=== PATIENT | female | born 2000 | race Hispanic/Latino ===

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

== ENCOUNTER 2020-10-26 21:28 | Inpatient (IN) | payer OTHER ==
--- OUTSIDE RECORDS SUMMARY | 2020-10-26 21:57 | XMS REPORT | Continuity of Care Document ---
:2000 Author Organization [facility] t Address [address] [place] [address] Care Team Providers Name Role Phone Whitney Avila Attending Clinician Problems This patient has no known problems. Allergies, Adverse Reactions, Alerts This patient has no known allergies or adverse reactions. Medications This patient has no known medications. Procedures This patient has no known procedures. Encounters Start End Encounter Admission Attending Care Care Encounter Source Date/Time Date/Time Type Type Clinicians Facility Department ID 2020-10-21 2020-10-21 Routine RUBÉN Dao [id number] 09:02:21 09:33:43 Whitney Alicia PROGRAM MANAGEMENT ANALYST [id number] Visit REGIONAL [id number] MATERNAL [id number] & CHILD [facility] 2020-10-15 2020-10-15 Telephone RUBÉN Dao [id number] 00:00:00 00:00:00 Merya R PROGRAM MANAGEMENT ANALYST [id number] REGIONAL [id number] MATERNAL [id number] & CHILD 107 [facility] Results This patient has no known results.
[2020-10-26] MEDS ORDERED: METHYLERGONOVINE 0.2MG/ML AMP IM PRN (22:25)
[2020-10-26] MEDS ORDERED: MIDAZOLAM HCL 2 MG/2 ML INJ IV PRN (22:25)
[2020-10-26] MEDS ORDERED: BUTORPHANOL 1 MG/ML INJ IV PRN (22:25)
[2020-10-26] MEDS ORDERED: CARBOPROST TROME 250 MCG/ML IM PRN (22:25)
[2020-10-26] MEDS ORDERED: PROMETHAZINE INJ 25 MG/ML AMP IM PRN (22:25)
[2020-10-26] MEDS ORDERED: MEPERIDINE HCL 25 MG/ML SYR IV PRN (22:25)
[2020-10-26] MEDS ORDERED: Ringers Lactate 1,000 ML IV PRN (22:25)
[2020-10-26 22:44] VITALS: BMI 32.9
[2020-10-26 22:52] LABS: Urine Appearance CLEAR (Clear); Urine Blood NEGATIVE (Negative); Urine Color DK YELLOW (Yellow); Urine Glucose NEGATIVE (Negative); Urine Protein NEGATIVE (Negative); Urine Specific Gravity >=1.030 (1.005-1.030); Urine pH 6.5 (5.0-7.0)
[2020-10-26] MEDS ORDERED: Ringers Lactate 1,000 ML IV SCH (23:00)
[2020-10-26] MEDS ORDERED: OXYTOCIN/LR 20 UNIT/1,000 ML BAG IV SCH (23:00)
[2020-10-26 23:02] LABS: Absolute Lymphocytes (CBC) 1.8 K/uL (0.7-4.9); Basophils % 0.2 % (0-1.3); Hematocrit 33.1 % (36.0-45.0); Lymphocytes % 14.9 % (15.3-44.8); MPV 9.5 fL (7.6-11.3); RBC Red Blood Cell Count 3.83 M/uL (3.86-4.86)
[2020-10-26 23:25] LABS: Urine Bilirubin NEGATIVE (Negative)
[2020-10-27 00:43] LABS: Urine Bacteria <20 /HPF (<20); Urine Mucus 1+ /HPF (NONE SEEN); Urine RBC <5 /HPF (NONE SEEN); Urine Urothelial Cells <5 /HPF (NONE SEEN)
[2020-10-27 01:15] LABS: RPR (Rapid Plasma Reagin) NON-REACT (NON-REACT)
[2020-10-27] MEDS ORDERED: FENTANYL CITR 100 MCG/2 ML IV ONE (01:30)
[2020-10-27] MEDS ORDERED: ROPIVACAINE HCL 0.2% 20ML AMP EP ONE ×2 (01:32)
[2020-10-27] MEDS ORDERED: ROPIVACAINE HCL 100 ML EP ONE (02:47)
[2020-10-27] MEDS ORDERED: Oxycodone HCl/Acetaminophen 1 TAB TAB PO PRN ×2 (06:05)
[2020-10-27] MEDS ORDERED: DIPHENHYDRAMINE 25 MG TAB/CAP PO PRN (06:05)
[2020-10-27] MEDS ORDERED: ACETAMINOPHEN 500 MG TAB PO PRN (06:05)
[2020-10-27] MEDS ORDERED: DOCUSATE NA/SENNA CONC 1 TAB PO PRN (06:05)
[2020-10-27] MEDS ORDERED: BISACODYL 10 MG RECTAL SUPP PR PRN (06:05)
[2020-10-27] MEDS ORDERED: OXYTOCIN/LR 20 UNIT/1,000 ML BAG IV SCH (07:00)
[2020-10-27] MEDS: METHYLERGONOVINE 0.2 MG TAB PO PRN ×4 (10:00→22:00)
--- NOTE | 2020-10-27 10:19 | PREOPHP ---
Date of Admission: 10/26/2020 History Of Present Illness: A 20-year-old, 3, para 2, 38 weeks 6 days, scheduled for inducti on in [place] today actually. Came in last night with contractions noted to be 4.5 cm, 90% effaced , vertex, shirley every 2 minutes, was admitted. Noted to be Rh positive, immune to rubella, neg ative strep, negative COVID. Two other vaginal deliveries without complications or problems. Family History: Noncontributory. Past Medical History: No allergies. Past Surgical History: No previous surgeries. Social History: Does not smoke. Physical Examination: HEENT: Clear. Pupils equal, round, reactive to light and accommodation. Conjunctivae well perfused . No oral, lingual, buccal lesions. Chest and Lungs: Clear. Heart: Without murmurs, thrills, heaves, or rubs. Breasts: Not examined. Abdomen: Small for gestational age, but otherwise clear. Extremities: Clear without edema, cyanosis, or clubbing. Assessment And Plan: Essentially healthy female at 38 weeks 6 days, in labor. Admit for stabilizati on and delivery. JOVAN/MARIANN Voice ID: [id number]
--- NOTE | 2020-10-27 10:19 | DN ---
Surgeon: Kareem Mccloud MD A 20-year-old, 3, para 2, 38 weeks 6 days, came in active labor. During the labor, received Stadol IV, Phenergan IM one time, then epidural anesthesia. Second stage consisted basically of 1 pu sh. Spontaneous vaginal delivery with delivery of a 6-pound 10-ounce female, Apgars 9 and 9. No epi siotomy. No lacerations. Schultze delivery of the placenta, which was inspected. There was noted t o be some retained membranes. These were removed with ring forceps without difficulties. Mild uteri ne hypotonus. 0.2 mg of Methergine IM as well as IV drip Pitocin and massage. Estimated blood loss 3 50 to possibly 400 mL. Methergine given more as prophylaxis. The patient tolerated all procedures w ell. Final Diagnoses: Term intrauterine at 38 weeks 6 days, vaginal delivery, epidural anesthes ia. JOVAN/MARIANN Voice ID: [id number] Report ID: [id number]
[2020-10-27] MEDS: IBUPROFEN 600 MG TAB PO PRN ×2 (10:38→23:55)
[2020-10-28 09:23] VITALS: BP 105/64; TEMP 97.5
--- NOTE | 2020-10-28 21:05 | DS ---
Date of Discharge: 10/28/2020 Hospital Course: A 20-year-old multiparous female, 38 weeks 6 days, came in active labor, delivered a 6 pounds 10 ounces female, Apgars 9 and 9, epidural anesthesia. No episiotomy. No laceration. Mi ld uterine hypotonus. 0.2 mg of Methergine IM and then subsequently p.o. every 4 hours 4 doses. She is ambulating, voiding. Lochia is normal. Wishes to go home. She is B positive, immune to rubella . Strep negative. COVID negative. Tdap shot suggested. No post epidural problems. Requires no an algesics on dismissal. Final Diagnoses: Term intrauterine at 38 weeks 6 day, followed in [facility], reena salazar. Epidural anesthesia. Mild uterine hypertonus. Tdap offered. JOVAN/MARIANN Voice ID: [id number] Report ID: [id number]
[2020-10-29 19:21] LABS: HBsAG Nonreactive (Nonreactive)
== END 2020-10-28 10:25 | disposition home or self-care (01) | DRG 807 ==
LOC: L&D 21:28 → 2ND-WC 21:55
PROVIDERS: ADMIT Specialist; ATTEND Specialist
PROC: 10E0XZZ Delivery of Products of Conception, External Approach (ICD-10-PCS; principal; 2020-10-27)
DX: O62.2 Other uterine inertia (principal); Z37.0 Single live birth; Z3A.38 38 weeks gestation of pregnancy; Z20.822 Contact with and (suspected) exposure to COVID-19
CPT/HCPCS: 36415; 81001; 85025; 86592; 86901; 87086; 87088; 87340; 99218; J0595; J2210; J2550; J2590; J2795; J3010; J7120

== ENCOUNTER 2022-07-18 15:27 | Emergency (ER) | payer OTHER ==
--- OUTSIDE RECORDS SUMMARY | 2022-07-18 15:51 | XMS REPORT | Continuity of Care Document ---
:2000 Author Organization [facility] t Address [address] [place] [address] Care Team Providers Name Role Phone DANIELLE CARRION Primary Care Physician Unavailable DANIELLE CARRION Attending Clinician Unavailable SKYE HEDRICK Attending Clinician Unavailable SKYE HEDRICK Attending Clinician Unavailable Yana King Attending Clinician [phone] WHITNEY POPE Attending Clinician Unavailable YANA JOVEL Attending Clinician Unavailable Whitney Avila Attending Clinician Doctor Unassigned, [place] Attending Clinician Unavailable Skye Paiz Attending Clinician SKYE VIZCAINO Attending Clinician Unavailable Lab, Adc Fam Pob I Attending Clinician Unavailable Capri Maria Attending Clinician Dnenis TURNER, Scott Umanzoran Attending Clinician 3, [facility] Usg Room Attending Clinician Unavailable Teddy MELLO, Betty Casper Attending Clinician Karson RN, Radha Ortiz Attending Clinician Karan BEAD SUPERVISOR, Aminah Cleveland Attending Clinician Nathan MELLO, Son Attending Clinician 2, [facility] Usg Room Attending Clinician Unavailable Geronimo MELLO, Sharron Phipps Attending Clinician Manuela MELLO, Luli Ortiz Attending Clinician BETTY ESPINAL Attending Clinician Unavailable Nathan MELLO, Son Admitting Clinician DRU CARLSON Admitting Clinician Unavailable Payers Payer Name Policy Type Policy Number Effective Date Expiration Date [facility] [id number] 2018 [facility] MEDICAID 00:00:00 [facility] [id number] 2021 00:00:00 [place]ICAID OF [place] [id number] 2015 2016 00:00:00 00:00:00 Problems Condition Condition Condition Status Onset Resolution Last Treating Co mments Source Name Details Category Date Date Treatment Clinician Date Other Other Disease Active Univers general general 3-31 [place] of [place] advice 00 Me dical for for Branch contracept contracept bettie bettie management management Rubella Rubella Disease Active Overview: Univ ers non-immune non-immune 5-10 Formattin ity of status, status, 00:00: g of this [place] antepartum antepartum 00 note Me dical might be Branch different from the original. Address pp Well woman Well woman Disease Active 2015-05 U nivers exam exam 1-07 ity of 00:00: [place] 00 Medical Branch Allergies, Adverse Reactions, Alerts Allergy Allergy Status Severity Reaction(s) Onset Inactive Treating Comm ents Source Name Type Date Date Clinician Mohit Elmore Active - Had acute Univers maddy Hcl ty to See comments 12-15 paralysis ity of (Pf) adverse 00:00: [place] reaction 00 Medical s Branch ONDANSET DRUG Active Unknown-Cmnt Un misty MADDY HCL 12-15 ity of (PF) 00:00: [place] 00 Medical Branch Social History Social Habit Start Date Stop Date Quantity Comments Source Exposure to Not sure University SARS-CoV-2 [place] Medical (event) Branch Alcohol intake 2021-08-20 2021-08-20 0 /d University 00:00:00 00:00:00 [facility] Tobacco use and 2015-02-12 2015-02-12 Smokeless tobacco Un iversity of exposure 00:00:00 00:00:00 non-user [facility] Sex Assigned At 2000 2000 Universit y of 00:00:00 00:00:00 [facility] Smoking Status Start Date Stop Date Source Never smoked tobacco [facility] Medications Ordered Filled Start Stop Current Ordering Indication Dosage Frequency Signature Comments Components Source Medication Medication Date Date Medication? Clinician (SIG) Name Name medroxyPROG 2021-2021- No [id number] 150mg Univers ESTERone 08-20 ity of (DEPO-PROVE 20:30: 21:29 [place] RA) 00 :00 Medical injection Branch 150 mg medroxyPROG 2021-2021- No [id number] 150mg 150 mg, Univers ESTERone 08-20 Intramuscu ity of (DEPO-PROVE 20:30: 21:29 lar, [place] RA) 00 :00 [id number], Medical injection 3 doses, Branch 150 mg First dose on Grace 08/20/21 at 1530, Last dose on Grace 02/04/22 at 1530, Routine medroxyPROG 2021-0 2021- No [id number] 150mg Univers ESTERone 08-20 ity of (DEPO-PROVE 20:30: 21:29 [place] RA) 00 :00 Medical injection Branch 150 mg LOESTRIN FE 2020-05 Yes [id number] 1{tbl} Take 1 Univers (MICROGESTI 2-17 tablet by ity of N FE 06/11) 00:00: mouth [place] 1 mg-20 mcg 00 daily. Medica l (21)/75 mg Branch (7) tablet LOESTRIN FE 2020-05 Yes [id number] 1{tbl} Take 1 Univers (MICROGESTI 2-17 tablet by ittamra of Kervin 06/11) 00:00: mouth [place] 1 mg-20 mcg 00 daily. Medica l (21)/75 mg Branch (7) tablet Immunizations Ordered Filled Immunization Date Status Comments [facility] e Immunization Name Name Influenza Virus 2021-05-08 Completed Universit y of Vaccine Quad IM, 00:00:00 [place] Me dical Preserv and ABX Branch Free 6 MO-64 YRS Influenza Virus 2021-05-08 Completed Universit y of Vaccine Quad IM, 00:00:00 [place] Me dical Preserv and ABX Branch Free 6 MO-64 YRS TDAP 2020-09-15 Completed University of 00:00:00 [facility] TDAP 2020-09-15 Completed University of 00:00:00 [facility] TDAP 2019-03-15 Completed University of 00:00:00 [facility] TDAP 2019-03-15 Completed University of 00:00:00 [facility] TDAP 2015-09-03 Completed University of 00:00:00 [facility] TDAP 2015-09-03 Completed University of 00:00:00 [facility] TDAP 2015-01-14 Completed University of 00:00:00 [facility] TDAP 2015-01-14 Completed University of 00:00:00 [facility] Vital Signs Vital Name Observation Time Observation Value Comments Source Systolic blood 2021-08-20 19:55:00 134 mm[Hg] Univer sity of pressure [facility] Diastolic blood 2021-08-20 19:55:00 78 mm[Hg] Unive rsity of pressure [facility] Heart rate 2021-08-20 19:55:00 67 /min [facility] Body temperature 2021-08-20 19:55:00 36.11 [facility] 2021-08-20 19:55:00 20 /min [facility] Body height 2021-08-20 19:55:00 162.6 cm [facility] Body weight 2021-08-20 19:55:00 85.9 kg [facility] BMI 2021-08-20 19:55:00 32.51 kg/m2 [facility] Procedures Procedure Date / Time Performed Performing Clinician Ruba staples POCT TEST 2021-08-20 19:56:00 Yana Jovel [facility] Encounters Start End Encounter Admission Attending Care Care Encounter Source Date/Time Date/Time Type Type Clinicians Facility Department ID 2021-03-20 Emergency [facility] [id number] Univers [facility] 2022-07-13 2022-07-13 Outpatient R MURALI [facility] [id number] Univers 13:45:00 13:45:00 DANIELLE [facility] 2021-12-01 2021-12-01 Outpatient R SKYE HEDRICK [facility] [id number] Univers 10:30:00 10:30:00 SKYE HEDRICK [facility] 2021-11-30 2021-11-[address] [facility] 1.2.840.114 [id number] Univers 00:00:00 00:00:00 Yana Arzola MGMT CONSULTANT 350.1.13.10 ity of [facility] 4.2.7.2.686 José Miguel as MATERNAL [id number] Med ical & CHILD [address] [place] [address] 2021-11-12 2021-11-12 Outpatient R [facility] [id number] Univers 10:30:00 10:30:00 ity [facility] 2021-11-12 2021-11-12 Outpatient R TOSHIA [facility] [id number] Univers 10:30:00 10:30:00 ROSHUNDA ity o f [facility] 2021-08-26 2021-08-26 Outpatient R [facility] [id number] Univers 10:00:00 10:00:00 [facility] 2021-08-20 2021-08-20 [facility] [id number] Univers 13:30:00 15:26:07 Visit Yana Arzola MGMT CONSULTANT 350.1.13.10 ity of [facility] 4.2.7.2.686 José Miguel as MATERNAL [id number] Med ical & CHILD [address] [place] [address] 2021-08-20 2021-08-20 Outpatient R AKINSIPE, [facility] [id number] Univers 13:30:00 15:26:07 YANA ity o f [facility] 2021-08-20 2021-08-20 Outpatient R AKINSIPE, [facility] [id number] Univers 13:30:00 13:30:[address] [facility] 2021-08-12 2021-08-12 [facility] [id number] Univers 10:30:00 11:22:48 WHITNEY ity o f [facility] 2021-08-12 2021-08-12 [facility] [id number] [id number] Univers 10:30:00 11:22:48 Visit Whitney Alicia MGMT CONSULTANT 350.1.13.10 ity of [facility] 4.2.7.2.686 José Miguel as MATERNAL [id number] [facility] ical & CHILD [address] [place] [address] 2021-08-12 2021-08-12 Orders Doctor SMITH 1.2.840.114 [id number] Univers 00:00:00 00:00:00 Only Unassigned, TONIO 350.1.13.10 ity of [place] [facility] 4.2.7.2.686 José Miguel as [id number] [address] 2021-08-06 2021-08-06 Outpatient R AKINSIPE, [facility] [id number] Univers 13:15:00 13:15:[address] [facility] 2021-08-06 2021-08-06 Outpatient R AKINSIPE, [facility] [id number] Univers 13:15:00 13:15:[address] [facility] 2021-05-08 2021-05-08 Office [facility] [id number] Univers 13:30:00 15:10:16 Visit Skye Templeton MGMT CONSULTANT 350.1.13.10 it y of [facility] 4.2.7.2.686 José Miguel as MATERNAL [id number] [facility] & CHILD [address] [place] [address] 2021-05-08 2021-05-08 Outpatient R CARRILLO, [facility] [id number] Univers 13:30:00 15:10:16 SKYE root [facility] 2021-05-08 2021-05-08 Outpatient R CARRILLO, [facility] [id number] Univers 13:30:00 13:30:00 SKYE root [facility] 2021-02-05 2021-02-05 Outpatient R AKINSIPE, [facility] [id number] Univers 08:15:00 08:15:[address] [facility] 2021-01-07 2021-01-07 Outpatient R AKINSIPE, [facility] [id number] Univers 15:15:00 15:15:00 YANA ity o f [facility] 2020-12-17 2020-12-17 Routine Akinsipe, [facility] [id number] Univers 08:15:24 08:45:40 Yana C MGMT CONSULTANT 350.1.13.10 ity of Visit REGIONAL 4.2.7.2.686 José Miguel as MATERNAL [id number] [facility] ical & CHILD [address] [place] [address] 2020-12-17 2020-12-17 Outpatient R AKINSIPE, [facility] [id number] Univers 08:15:00 08:15:[address] [facility] 2020-12-08 2020-12-08 Outpatient R AKINSIPE, [facility] [id number] Univers 16:00:00 16:00:[address] [facility] 2020-11-25 2020-11-25 Telephone Akinsipe, [facility] 1.2.840.114 [id number] Univers 00:00:00 00:00:00 Yana C MGMT CONSULTANT 350.1.13.10 ity of REGIONAL 4.2.7.2.686 José Miguel as MATERNAL [id number] [facility] & CHILD [address] [place] [address] 2020-11-17 2020-11-17 Outpatient R AKINSIPE, [facility] [id number] Univers 10:30:00 10:30:[address] [facility] 2020-10-29 2020-10-[address] [facility] [id number] Univers 00:00:00 00:00:00 Roshunda R MGMT CONSULTANT 350.1.13.10 ity of REGIONAL 4.2.7.2.686 José Miguel as MATERNAL [id number] Med ical & CHILD [address] [place] [address] 2020-10-21 2020-10-21 [facility] 1.2.840.114 [id number] 09:02:21 09:33:43 Roshunda R MGMT CONSULTANT 350.1.13.10 Visit REGIONAL 4.2.7.2.686 MATERNAL [id number] & CHILD [address] [place] [address] 2020-10-21 2020-10-21 [facility] 1.2.840.114 [id number] Univers 09:02:21 09:33:43 Roshunda R MGMT CONSULTANT 350.1.13.10 ity of Visit REGIONAL 4.2.7.2.686 José Miguel as MATERNAL [id number] Med ical & CHILD [address] [place] [address] 2020-10-21 2020-10-21 Outpatient R TOSHIA [facility] [id number] Univers 08:15:00 08:15:00 ROSHUNDA ity o f [facility] 2020-10-15 2020-10-15 Telephone [facility] [id number] 00:00:00 00:00:00 Roshunda R MGMT CONSULTANT 350.1.13.10 REGIONAL 4.2.7.2.686 MATERNAL [id number] & CHILD [address] [place] [address] 2020-10-15 2020-10-15 [facility]phone [facility] [id number] Univers 00:00:00 00:00:00 Roshunda R MGMT CONSULTANT 350.1.13.10 ity of REGIONAL 4.2.7.2.686 José Miguel as MATERNAL [id number] [facility] ical & CHILD [address] [place] [address] 2020-10-14 2020-10-14 [facility]ine [facility] 1.2.840.114 [id number] Univers 07:49:14 08:52:03 Roshunda R MGMT CONSULTANT 350.1.13.10 ity of Visit REGIONAL 4.2.7.2.686 José Miguel as MATERNAL [id number] [facility] & [address] 2020-10-14 2020-10-14 Outpatient Maral POPE [facility] [id number] Univers 07:45:00 07:45:[address] [facility] 2020-10-14 2020-10-14 Refill [facility] 1.2.840.114 [id number] Univers 00:00:00 00:00:00 Roshunda R MGMT CONSULTANT 350.1.13.10 ity of REGIONAL 4.2.7.2.686 José Miguel as MATERNAL [id number] [facility] & [address] 2020-10-13 2020-10-13 Outpatient [facility] [id number] Univers 13:15:00 13:15:[address] [facility] 2020-10-08 2020-10-08 Outpatient Maral POPE [facility] [id number] Univers 07:45:00 07:45:[address] [facility] 2020-10-06 2020-10-06 Outpatient Maral POPE [facility] [id number] Univers 15:45:00 15:45:00 FLAKONDA brittanyy o f [facility] 2020-09-29 2020-09-29 Outpatient Maral POPE [facility] [id number] Univers 12:45:00 12:45:00 FLAKONDA ity o f [facility] 2020-09-22 2020-09-22 Outpatient Maral POPE [facility] [id number] Univers 08:00:00 08:00:[address] [facility] 2020-09-18 2020-09-18 Telephone [facility] [id number] Univers 00:00:00 00:00:00 Roshunda R MGMT CONSULTANT 350.1.13.10 ity of REGIONAL 4.2.7.2.686 José Miguel as MATERNAL [id number] [facility] & CHILD [address] [place] [address] 2020-09-16 2020-09-[address] [facility] [id number] Univers 00:00:00 00:00:00 Merya R MGMT CONSULTANT 350.1.13.10 ity of [facility] 4.2.7.2.686 José Miguel as MATERNAL [id number] [facility] & CHILD [address] [place] [address] 2020-09-15 2020-09-15 Routine [facility] 1.2.840.114 [id number] Univers 11:09:33 11:35:21 Rosnda R MGMT CONSULTANT 350.1.13.10 ity of Visit [facility] 4.2.7.2.686 José Miguel as MATERNAL [id number] [facility] & CHILD [address] [place] [address] 2020-09-15 2020-09-15 [facility] [id number] Univers 11:00:00 11:00:[address] [facility] [facility] [address] [facility] 2020-09-12 2020-09-12 Outpatient [facility] [id number] Univers 08:45:00 08:45:[address] [facility] 2020-09-03 2020-09-03 Outpatient [facility] [id number] Univers 09:30:00 09:30:[address] [facility] [address] [facility] 2020-09-02 2020-09-02 Laboratory Lab, Adc Fam Pob I [facility] 1.2. [id number] [id number] Univers 10:21:50 10:41:50 Only Capri [facility] 350.1.13.10 ity [facility] 4.2.7.2.686 José Miguel as Professio [id number] Mi dical nal [address] 2020-09-02 2020-09-02 Outpatient R [facility] [id number] Univers 10:00:00 10:00:00 ity of [facility] 2020-09-01 2020-09-01 Outpatient R [facility] [id number] Univers 17:00:00 17:00:00 ity [facility] 2020-09-01 2020-09-01 [facility]phone [facility] [id number] Univers 00:00:00 00:00:00 Whitney R MGMT CONSULTANT 350.1.13.10 ity of [facility] 4.2.7.2.686 José Miguel as MATERNAL [id number] [facility] & CHILD [address] [place] [address] 2020-08-27 2020-08-27 [facility]phone [facility] 1.2.313.151 [id number] Univers 00:00:00 00:00:00 Whitney R MGMT CONSULTANT 350.1.13.10 ity of [facility] 4.2.7.2.686 José Miguel as MATERNAL [id number] [facility] & CHILD [address] [place] [address] 2020-08-25 2020-08-25 Outpatient [facility] [id number] Univers 14:30:00 14:30:00 ROSJERSONNDA ity o f [facility] 2020-08-12 2020-08-[address] [facility] 1.2.840.114 [id number] Univers 00:00:00 00:00:[address] [facility] 350.1.13.10 i ty of [facility] 4.2.7.2.686 [place] [id number] [address] 2020-08-11 2020-08-11 Outpatient [facility] [id number] Univers 13:45:00 13:45:00 ROSHUNDA ity o f [facility] 2020-07-31 2020-07-31 Outpatient R [facility] [id number] Univers 13:00:00 13:00:00 ity [facility] 2020-07-23 2020-07-23 Outpatient R [facility] [id number] Univers 13:30:00 13:30:[facility] 2020-07-21 2020-07-21 [facility] 1.2.840.114 [id number] Univers 14:45:01 15:41:37 Roshunda R MGMT CONSULTANT 350.1.13.10 ity of Visit REGIONAL 4.2.7.2.686 José Miguel as MATERNAL [id number] [address] 2020-07-21 2020-07-21 Outpatient R TOSHIA [facility] [id number] Univers 14:45:00 14:45:00 ROSHUNDA ity o f [facility] 2020-07-16 2020-07-16 Outpatient R TOSHIA [facility] [id number] Univers 15:00:00 15:00:00 ROSHUNDA ity o f [facility] 2020-06-30 2020-06-[address] [facility] 1.2.840.114 [id number] Univers 00:00:00 00:00:00 Roshunda R MGMT CONSULTANT 350.1.13.10 ity of REGIONAL 4.2.7.2.686 José Miguel as MATERNAL [id number] [address] 2020-06-27 2020-06-27 Global President 3, [facility] Us Room UNIVERSIT 1 .2.840.114 [id number] Univers 09:21:04 11:18:05 Visit Betty Espinal [facility] 350.1.13.10 ity of CL[place].2.[place] [id number] [address] 2020-06-27 2020-06-27 Outpatient P [facility] [id number] Univers 09:00:00 09:00:00 ity of [facility] 2020-06-18 2020-06-[address] [facility] 1.2.840.114 [id number] Univers 14:01:57 14:48:23 Roshunda R MGMT CONSULTANT 350.1.13.10 ity of Visit REGIONAL 4.2.7.2.686 José Miguel as MATERNAL [id number] [address] 2020-06-18 2020-06-18 Outpatient R TOSHIA [facility] [id number] Univers 13:45:00 13:45:00 ROSHUNDA ity o f [facility] 2020-06-18 2020-06-18 Orders Doctor LUIS 1.2.840.114 [id number] Univers 00:00:00 00:00:00 Only Unassigned, TONIO 350.1.13.10 ity of [place] [facility] 4.2.7.2.686 José Miguel as [id number] [facility] [address] 2020-06-10 2020-06-10 Outpatient R CARRILLO [facility] [id number] Univers 08:00:00 08:00:00 SKYE ittamra of [facility] 2020-05-05 2020-05-05 Outpatient R TOSHIA [facility] [id number] Univers 14:00:00 14:00:00 WHITNEY casper [facility] 2019-12-18 2019-12-18 Transition Karson Jefersonkervin 1.2.840.114 [id number] Univers 00:00:00 00:00:00 of Care Radha Montgomery 350.1.13.10 i ty of [place]7.[place].[address] [place] [id number] [facility] [address] 2019-12-15 2019-12-17 [facility] Aminah Russo [facility] 1.2.840. 114 [id number] Univers 10:18:51 16:28:00 Encounter Son Evans 350.1.13.10 ity of [place]2.[place] [id number] [facility] 080 Branch 2019-07-16 2019-07-[address] [facility] 1.2.840.114 [id number] Univers 15:23:19 16:25:38 Visit Whitney Alicia MGMT CONSULTANT 350.1.13.10 ity of [facility] 4.2.7.2.686 José Miguel as MATERNAL [id number] Med ical & CHILD [address] [place] [address] 2019-07-16 2019-07-16 Outpatient R TOSHIA [facility] [id number] Univers 15:15:00 15:15:00 WHITNEY casper [facility] 2019-06-25 2019-06-[address] [facility] 1.2.840.114 [id number] Univers 11:16:05 11:40:23 Roshunda R MGMT CONSULTANT 350.1.13.10 ity of Visit REGIONAL 4.2.7.2.686 José Miguel as MATERNAL [id number] [facility] & CHILD [address] [place] [address] 2019-01-19 2019-01-19 Abstract [facility] 1.2.840.114 [id number] Univers 00:00:00 00:00:00 Yana Arzola MGMT CONSULTANT 350.1.13.10 ity of REGIONAL 4.2.7.2.686 José Miguel as MATERNAL [id number] [facility] & CHILD [address] [place] [address] 2019-01-18 2019-01-18 Global President 2, [facility] Us Room UNIVERSIT 1 .2.840.114 [id number] Univers 10:50:09 13:05:20 Visit Sharron Melton [facility] 350.1.1 3.10 ity of [facility] 4.2.7.2.686 [place] [id number] [address] 2018-12-29 2018-12-29 Telephone [facility] 1.2.745.057 [id number] Univers 00:00:00 00:00:00 Rosjersonnda R MGMT CONSULTANT 350.1.13.10 ity of [facility] 4.2.7.2.686 José Miguel as MATERNAL [id number] [facility] & [address] 2018-12-29 2018-12-29 Letter [facility] 1.2.840.114 [id number] Univers 00:00:00 00:00:00 (Out) Flakonda R MGMT CONSULTANT 350.1.13.10 ity of [facility] 4.2.7.2.686 José Miguel as MATERNAL [id number] [facility] & CHILD [address] [place] [address] 2015-09-27 2015-09-29 Inpatient P TEDDY [facility] OBF [id number] Univers 08:10:00 17:23:00 BETTY root [facility] Results Test Description Test Time Test Comments Results Result Comments Source POCT TEST 2021-08-20 19:56:00 Test Item Value Reference Range Interpretation Comme nts POCT PREG (test code = 1605) Negative On board controls acceptable with C Line (test code = 3574) Yes POCT PREG LOT # (test code = 3575) POCT PREG TEST DATE (test code = 3576) [facility]
[2022-07-18 16:13] LABS: Absolute Lymphocytes (CBC) 1.4 K/uL (0.7-4.9); Hematocrit 34.8 % (36.0-45.0); Lymphocytes % 13.9 % (15.3-44.8); MCV 86.6 fL (80-100); MPV 8.2 fL (7.6-11.3); RBC Red Blood Cell Count 4.01 M/uL (3.86-4.86)
[2022-07-18 16:38] LABS: Urine Bacteria None Seen /HPF (<20); Urine RBC >50 /HPF (None Seen)
[2022-07-18 16:48] LABS: Urine Color Red (Yellow)
[2022-07-18 16:49] LABS: Urine Clarity Extremely Turbid (Clear)
[2022-07-18 17:02] LABS: Potassium 3.5 mmol/L (3.5-5.1)
[2022-07-18] MEDS ORDERED: ACETAMINOPHEN 500 MG TAB ONE (17:55)
--- NOTE | 2022-07-18 18:35 | RAD REPORT ---
EXAM DESCRIPTION: US - Transvaginal OB - 07/18/2022 5:47 pm CLINICAL HISTORY: Pain COMPARISON: Transvaginal OB dated 11/15/2018 TECHNIQUE: Sonographic grayscale and color flow images of the pelvis were obtained through a transva ginal approach. FINDINGS: Uterus is anteverted, measuring 12.7 centimeter in length. The endometrium is thickened and heterogeneous, without a focal lesion, measuring 1.6 centimeter in t hickness. No gestational sac is visualized in the endometrial cavity. The left ovary shows maintained vascularity. A simple appearing anechoic ovoid 1.3 x 1.0 x 0.9 centim eter cyst is noted, likely a dominant cyst or follicle. No suspicious cysts or masses. The right ovary is not visualized. No free fluid. IMPRESSION: 1. Evaluation is limited by nonvisualization of the right ovary. 2. No intrauterine , or evidence of ectopic on the left. 3. Endometrium is heterogeneous, please correlate with menstrual phase. 4. No free fluid.
[2022-07-18] MEDS ORDERED: MORPHINE 2 MG/ML SYR ONE (18:51)
[2022-07-18 19:36] LABS: SARS-CoV-2 Antigen Rapid Res Negative (Negative)
--- NOTE | 2022-07-18 19:50 | EDPHYS ---
Physician Documentation [facility] Name: Maame Mcmahon Age: 21 yrs Sex: Female : 2000 Arrival Date: 07/18/2022 Time: 15:29 Bed 7 Private MD: ED Physician Shahid Olson HPI: 07/18 15:56 This 21 yrs old Female presents to ER via Ambulatory with complaints of kb Vaginal Bleeding, + Preg <12wks, Abdominal Cramping. 15:56 The patient presents to the emergency department with abdominal pain, of the suprapubic kb area, that started this morning, described as crampy, vaginal bleeding, that is light. course: care: none, Leakage of Fluid: none appreciated, Ultrasound: the patient has not had an ultrasound, Risk/complications: no obvious risks or complications are appreciated. Previous pregnancies: in previous pregnancies patient has had. Associated signs and symptoms: Pertinent positives: abdominal pain, vaginal bleeding. The patient has not experienced similar symptoms in the past. The patient has not recently seen a physician. 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 - Social history:: Smoking status: unknown. ROS: 15:55 Constitutional: Negative for fever, chills, and weight loss. kb 15:55 Abdomen/GI: Positive for abdominal cramps. 15:55 : Positive for vaginal bleeding. 15:55 All other systems are negative. Exam: 15:55 Constitutional: This is a well developed, well nourished patient who is awake, alert, kb and in no acute distress. Head/Face: Normocephalic, atraumatic. ENT: Moist Mucous membranes Cardiovascular: Regular rate and rhythm with a normal S1 and S2. No gallops, murmurs, or rubs. No pulse deficits. Respiratory: Respirations even and unlabored. No increased work of breathing. Talking in full sentences Skin: Warm, dry with normal turgor. Normal color. MS/ Extremity: Pulses equal, no cyanosis. Neurovascular intact. Full, normal range of motion. Neuro: Awake and alert, GCS 15, oriented to person, place, time, and situation. Moves all extremities. Normal gait. Psych: Awake, alert, with orientation to person, place and time. Behavior, mood, and affect are within normal limits. 15:55 Abdomen/GI: Inspection: abdomen appears normal, Bowel sounds: normal, Palpation: soft, in all quadrants, mild abdominal tenderness, in the suprapubic area and left lower quadrant. 19:48 : Pelvic Exam: External exam: is normal, Speculum exam: moderate bleeding, no kb cervicitis, os that is open, tissue in cervix is seen, the nurse was present for the exam. Vital Signs: 15:32 BP 130 / 84; Pulse 82; Resp 16; Temp 98.6; Pulse Ox 100% on R/A; Weight 83.91 kg; hb Height 5 ft. 3 in. (160.02 cm); Pain 1/10; 15:45 BP 105 / 73; Pulse 58; Resp 17; Pulse Ox 98% ; jl7 17:50 BP 103 / 66; Pulse 68; Resp 15; Pulse Ox 98% ; jl7 18:45 BP 114 / 77; Pulse 66; Resp 15; Pulse Ox 98% ; jl7 19:30 BP 101 / 66; Pulse 58; Resp 17 S; Pulse Ox 98% on R/A; aa9 20:15 BP 100 / 58; Pulse 65; Resp 16 S; Pulse Ox 98% on R/A; aa9 15:32 Body Mass Index 32.77 (83.91 kg, 160.02 cm) hb MDM: 15:31 Patient medically screened. kb 15:39 ED course: Patient is a 21-year-old female who presents for vaginal bleeding that kb started this morning. States she still wearing the same pad that she put on when the bleeding started. LMP 05/22/2022. G4, . Patient reports mild cramping. On exam patient has mild tenderness to suprapubic area and left lower quadrant. Will obtain serum labs, urinalysis and transvaginal ultrasound.. 15:55 Differential diagnosis: ectopic . Data reviewed: vital signs, nurses notes. kb 19:15 Management of patient was discussed with the following: Dr Perry, OB at [facility]. kb States she would evaluate pt in the ER if she was sent there, but could not accept this pt to L\T\D. [facility] is unable to accept ER to ER transfers per the transfer center. Will try to transfer pt to [facility]. 19:46 Discussion of test interpretation with radiology: I had a discussion with radiology kb regarding a test interpretation. Discussed US with Dr Mckeon. Counseling: I had a detailed discussion with the patient and/or guardian regarding: the historical points, exam findings, and any diagnostic results supporting the discharge/admit diagnosis, lab results, radiology results, the need to transfer to another facility. ED course: [facility] transfer center called back. Dr Perry will accept pt to [facility] L\T\D.. 19:49 ED course: Pelvic exam completed. Clots removed from vaginal vault. Tissue noted in kb cervix. Moderate bleeding.. 07/18 15:32 Order name: Abo/rh Typing; Complete Time: 17:01 kb 07/18 15:32 Order name: Basic Metabolic Panel; Complete Time: 17:12 kb 07/18 15:32 Order name: CBC with Diff; Complete Time: 16:17 kb 07/18 15:32 Order name: Quantitative Hcg; Complete Time: 17:12 kb 07/18 16:01 Order name: UA; Complete Time: 16:51 eb 07/18 18:58 Order name: SARS RAPID; Complete Time: 19:40 eb 07/18 15:32 Order name: US Transvaginal Ob; Complete Time: 18:53 kb 07/18 15:32 Order name: IV Saline Lock; Complete Time: 16:11 kb 07/18 15:32 Order name: Labs collected and sent; Complete Time: 16:11 kb 07/18 15:32 Order name: NPO; Complete Time: 15:52 kb Administered Medications: 17:54 Drug: Tylenol 1000 mg Route: PO; jl7 20:23 Follow up: Response: No adverse reaction aa9 18:50 Drug: morphine 2 mg Route: IVP; Infused Over: 4 mins; Site: right antecubital; jl7 20:23 Follow up: Response: No adverse reaction aa9 Disposition Summary: 07/18/22 19:48 Transfer Ordered Transfer Location: [facility] kb Reason: Higher level of care kb Condition: Stable kb Problem: new kb Symptoms: are unchanged kb Accepting Physician: Dr Perry(07/18/22 20:32) aa9 Diagnosis - Lower abdominal pain, unspecified kb - Incomplete spontaneous without complication - vs ectopic kb Forms: - Medication Reconciliation Form kb - SBAR form kb Addendum: 07/20/2022 07:17 Co-signature as Attending Physician, Shahid Olson MD I reviewed the patient's care r n provided by the Advanced Practice Provider and agree with the diagnosis and treatment plan. Signatures: Dispatcher [employer] EDVA Annamaria Campa, COLD STORAGE SUPERINTENDENT-C COLD STORAGE SUPERINTENDENT-Ckb Shahid Olson MD MD rn Baxter, Heather RN RN Cheo Sarah RN RN jl7 Leanne Jackson RN RN aa9 Corrections: (The following items were deleted from the chart) 07/18 18:57 15:32 Urine Dipstick-Ancillary ordered. asia jl7 18:57 15:32 Urine Test ordered. asia jl7 20:32 19:48 Dr Perry kb aa9
--- NOTE | 2022-07-18 19:50 | ER ---
Nurse's Notes [facility] Name: Maame Mcmahon Age: 21 yrs Sex: Female : 2000 Arrival Date: 07/18/2022 Time: 15:29 Bed 7 Private MD: Diagnosis: Lower abdominal pain, unspecified;Incomplete spontaneous without complication-vs ectopic Presentation: 07/18 15:32 Chief complaint: Heavy vaginal bleeding and abdominal cramping since this morning. hb Reports recent positive home test. LMP unknown, possibly April. . Coronavirus screen: At this time, the client does not indicate any symptoms associated with coronavirus-19. Ebola Screen: No symptoms or risks identified at this time. Initial Sepsis Screen: Does the patient meet any 2 criteria? No. Patient's initial sepsis screen is negative. Does the patient have a suspected source of infection? No. Patient's initial sepsis screen is negative. Risk Assessment: Do you want to hurt yourself or someone else? Patient reports no desire to harm self or others. Onset of symptoms was July 18, 2022. 15:32 Method Of Arrival: Ambulatory 15:32 Acuity: GODFREY 3 hb Triage Assessment: 16:00 General: Appears in no apparent distress. uncomfortable, Behavior is calm, cooperative, jl7 appropriate for age. 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 - Social history:: Smoking status: unknown. Screenin:45 [facility] ED Fall Risk Assessment (Adult) History of falling in the last 3 months, jl7 including since admission No falls in past 3 months (0 pts). Abuse screen: Denies threats or abuse. Denies injuries from another. Nutritional screening: No deficits noted. Tuberculosis screening: No symptoms or risk factors identified. Assessment: 15:45 Obstetrical Assessment: General assessment: awake and alert, anxious, skin warm and jl7 dry, respirations even and unlabored. Pain: Complains of pain in left lower quadrant and suprapubic area Pain currently is 1 out of 10 on a pain scale. : Reports vaginal bleeding that is bright red, heavy flow. 16:45 Reassessment: Patient appears in no apparent distress at this time. No changes from jl7 previously documented assessment. Patient and/or family updated on plan of care and expected duration. Pain level reassessed. Patient is alert, oriented x 3, equal unlabored respirations, skin warm/dry/pink. 17:10 Reassessment: US at bedside. jl7 17:50 Reassessment: US completed ordered imaging. jl7 18:45 Reassessment: KIRILL Yin at bedside for pelvic exam, multiple blood clots removed, pt jl7 reports increased pain, VO for 2 mg Morphine IVP, pt medicated as ordered. 20:10 Reassessment: report provided to receiving facility, pt aware of transfer, denies any [facility] concerns at this time. pt provided clean pad and changed linens. 20:22 Reassessment: [facility] at bedside, report provided. aa9 Vital Signs: 15:32 BP 130 / 84; Pulse 82; Resp 16; Temp 98.6; Pulse Ox 100% on R/A; Weight 83.91 kg; hb Height 5 ft. 3 in. (160.02 cm); Pain 1/10; 15:45 BP 105 / 73; Pulse 58; Resp 17; Pulse Ox 98% ; jl7 17:50 BP 103 / 66; Pulse 68; Resp 15; Pulse Ox 98% ; jl7 18:45 BP 114 / 77; Pulse 66; Resp 15; Pulse Ox 98% ; jl7 19:30 BP 101 / 66; Pulse 58; Resp 17 S; Pulse Ox 98% on R/A; aa9 20:15 BP 100 / 58; Pulse 65; Resp 16 S; Pulse Ox 98% on R/A; aa9 15:32 Body Mass Index 32.77 (83.91 kg, 160.02 cm) hb ED Course: 15:29 Patient arrived in ED. mr 15:30 Annamaria Campa, MADYSON is PHCP. kb 15:30 Shahid Olson MD is Attending Physician. kb 15:34 Triage completed. hb 15:34 Arm band placed on left wrist. hb 15:45 Patient has correct armband on for positive identification. jl7 15:52 Cheo Walters, RN is Primary Nurse. jl7 16:12 Initial lab(s) drawn, by mn, sent to lab. Inserted saline lock: 20 gauge in right jl7 antecubital area, using aseptic technique. Blood collected. 17:56 US Transvaginal Ob In Process Unspecified. EDMS 18:35 Pulse ox on. NIBP on. Warm blanket given. jl7 18:35 Assist provider with pelvic exam: Set up pelvic tray. Performed by Annamaria COUGHLIN Patient tolerated well. 18:56 initiated a transfer with Rik Bryan from the [facility] Transfer [facility]. eb 20:17 Repositioned patient. Linen changed. aa9 20:32 Patient transferred, IV remains in place. aa9 Administered Medications: 17:54 Drug: Tylenol 1000 mg Route: PO; jl7 20:23 Follow up: Response: No adverse reaction aa9 18:50 Drug: morphine 2 mg Route: IVP; Infused Over: 4 mins; Site: right antecubital; jl7 20:23 Follow up: Response: No adverse reaction aa9 Medication: 15:45 VIS not applicable for this client. jl7 Outcome: 19:48 ER care complete, transfer ordered by kb 20:32 Transferred by ground EMS to [facility], Transfer form aa9 completed. 20:32 Condition: stable 20:32 Instructed on the need for transfer. 20:32 Patient left the ED. aa9 Signatures: Dispatcher [employer] EDAnnamaria Covington FNP-C FNP-Ckb Krishna Sharron PalmaJeana RN RN Cheo Walters RN RN jl7 Jordyn Robert Aylin, POLLY RN aa9
[2022-07-18 20:43] VITALS: TEMP 98.6
[2022-07-18 20:49] VITALS: O2SAT 98
[2022-07-18 21:02] VITALS: BP 100/58
== END 2022-07-18 20:32 | disposition short-term general hospital (02) ==
LOC: ER 15:27
DX: O03.4 Incomplete spontaneous abortion without complication (principal); R10.30 Lower abdominal pain, unspecified; Z20.822 Contact with and (suspected) exposure to COVID-19
CPT/HCPCS: 85025; 81001; 80048; 36415; 86900; 86901; 84702; 76817; 96374; 99285; 87811; J2270

== ENCOUNTER 2023-01-16 20:42 | Emergency (ER) | payer OTHER ==
--- OUTSIDE RECORDS SUMMARY | 2023-01-16 20:45 | XMS REPORT | Continuity of Care Document ---
:2000 Author Organization [facility] t Address [address] [facility] [address] [place] [address] Care Team Providers Name Role Phone DANIELLE CARRION Primary Care Physician Unavailable YANA JOVEL Attending Clinician Unavailable Whitney Avila Attending Clinician Unavailable MILLER MATA Attending Clinician Unavailable MILLER MATA Attending Clinician Unavailable DANIELLE CARRION Attending Clinician Unavailable SKYE HEDRICK Attending Clinician Unavailable SKYE HEDRICK Attending Clinician Unavailable Becka LOULOUP, Yana Arzola Attending Clinician [phone] WHITNEY POPE Attending Clinician Unavailable Doctor Unassigned, Rogers Attending Clinician Unavailable Skye Paiz Attending Clinician SKYE VIZCAINO Attending Clinician Unavailable Lab, Adc Fam Pob I Attending Clinician Unavailable Capri Maria Attending Clinician Scott Collins DO Attending Clinician 3, [facility] Usg Room Attending Clinician Unavailable Teddy MELLO, Betty Casper Attending Clinician Karson RN, Radha Ortiz Attending Clinician Karan PULPING MACHINE OPERATOR, Aminah Cleveland Attending Clinician Nathan MELLO, Son Attending Clinician 2, [facility] Us Room Attending Clinician Unavailable Geronimo MELLO, Sharron Phipps Attending Clinician Manuela MELLO, Luli Ortiz Attending Clinician BETTY ESPINAL Attending Clinician Unavailable MILLER MATA Admitting Clinician Unavailable Nathan MELLO, Son Admitting Clinician DRU CARLSON Admitting Clinician Unavailable Payers Payer Name Policy Type Policy Number Effective Date Expiration Date [facility] [id number] 2018 [facility] MEDICAID 00:00:00 [facility] [id number] 2021 00:00:00 [place]ID OF [place] [id number] 2015 2016 00:00:00 00:00:00 Problems Condition Condition Condition Status Onset Resolution Last Treating Co mments Source Name Details Category Date Date Treatment Clinician Date Incomplete Incomplete Disease Active U nivers 2-26 ity of without without 00:00: [place] complicati complicati 00 Me dical ons ons Branch Other Other Disease Active Univers general general 3-31 [place] of counseling [place] advice and advice 00 Me dical for for Branch contracept contracept bettie bettie management management Rubella Rubella Disease Active Overview: Univ ers non-immune non-immune 5-10 Formattin ity of status, status, 00:00: g of this [place] antepartum antepartum 00 note Me dical might be Branch different from the original. Address pp Well woman Well woman Disease Active 2015-05 U nivers exam exam 1-07 ity of 00:00: [place] 00 Medical Branch Allergies, Adverse Reactions, Alerts Allergy Allergy Status Severity Reaction(s) Onset Inactive Treating Comm ents Source Name Type Date Date Clinician Mohit Mathisensi Active Unknown - Had acute Univers maddy Hcl ty to See comments 12-15 paralysis ity of (Pf) adverse 00:00: [place] reaction 00 Medical s [place] ONDANSET DRUG Active Unknown-Cmnt Un misty MADDY HCL 7- ity of (PF) 00:00: [place] Medical [place] NO KNOWN Drug Active Univers ALLERGIE Class ity of S [facility] Social History Social Habit Start Date Stop Date Quantity Comments Source Exposure to 2022-07-08 2022-07-18 Not sure [facility] SARS-CoV-2 00:00:00 21:19:00 [facility] (event) [place] Alcohol intake 2022-07-18 2022-07-18 0 /d [facility] 00:00:00 00:00:00 [facility] Tobacco use and 2015-02-12 2015-02-12 Smokeless tobacco Un iversity of exposure 00:00:00 00:00:00 non-user [facility] Sex Assigned At 2000 2000 Universit y of 00:00:00 00:00:00 [facility] Smoking Status Start Date Stop Date Source Never smoked tobacco [facility] Medications Ordered Filled Start Stop Current Ordering Indication Dosage Frequency Signature Comments Components Source Medication Medication Date Date Medication? Clinician (SIG) Name Name methylergon No 200ug 200 mcg, Univers ovine 07-19 Oral, Q6H, ity of (METHERGINE 06:00: 05:59 4 doses, [place] tablet 00 :00 First dose Medic al 200 mcg on Mon Branch 07/19/22 at 0000, Last dose on [facility] 07/19/22 at 1800, Routine methylergon Yes [id number] 200ug Take 1 Univers ovine 0.2 2-27 tablet by ity o f mg tablet 00:00: mouth [place] 00 every 6 Medical (six) Branch hours. methylergon 2022-0 Yes [id number] 200ug Take 1 Univers ovine 0.2 2-27 tablet by ity o f mg tablet 00:00: mouth [place] 00 every 6 Medical (six) Branch hours. ibuprofen 2022-0 Yes [id number] 800mg Take 1 Univers 800 mg 2-26 tablet by ity of tablet 00:00: mouth [place] 00 every 6 Medical (six) Branch hours as needed for Pain (scale 4-6). ibuprofen 2022-0 Yes [id number] 800mg Take 1 Univers 800 mg 2-26 tablet by ity of tablet 00:00: mouth [place] 00 every 6 Medical (six) Branch hours as needed for Pain (scale 4-6). medroxyPROG 2021- No [id number] 150mg Univers ESTERone -08 ity of (DEPO-PROVE 20:30: 21:29 [facility]) 00 :00 Medical injection Branch 150 mg medroxyPROG 2021- No [id number] 150mg 150 mg, Univers ESTERone -08 Intramuscu ity of (DEPO-PROVE 20:30: 21:29 [facility], [facility]) 00 :00 [id number], Medical injection 3 doses, Branch 150 mg First dose on [place] 08/20/21 at 1530, Last dose on [place] 02/04/22 at 1530, Routine medroxyPROG 2021- No [id number] 150mg Univers ESTERone 08-20 ity of (DEPO-PROVE 20:30: 21:29 [facility]) 00 :00 Medical injection Branch 150 mg LOESTRIN FE 2020-05 Yes [id number] 1{tbl} Take 1 Univers (MICROGESTI 2-17 tablet by ity of N FE 06/11) 00:00: mouth [place] 1 mg-20 mcg 00 daily. Medica l (21)/75 mg Branch (7) tablet LOESTRIN FE 2020-05 Yes [id number] 1{tbl} Take 1 Univers (MICROGESTI 2-17 tablet by ity of N FE 06/11) 00:00: mouth [place] 1 mg-20 mcg 00 daily. Medica l (21)/75 mg Branch (7) tablet LOESTRIN FE 2020-05 2023- No [id number] 1{tbl} Take 1 Univers (MICROGESTI 2-17 07-18 tablet by it y of N FE 06/11) 00:00: 00:00 mouth [place] 1 mg-20 mcg 00 :00 daily. Medica l (21)/75 mg Branch (7) tablet Immunizations Ordered Filled Immunization Date Status Comments [facility] e Immunization Name Name Influenza Virus 2021-05-08 Completed Universit y of Vaccine Quad IM, 00:00:00 [place] Me dical Preserv and ABX Branch Free 6 MO-64 YRS Influenza Virus 2021-05-08 Completed Universit y of Vaccine Quad IM, 00:00:00 [place] Me dical Preserv and ABX Branch Free 6 MO-64 YRS Influenza Virus 2021-05-08 Completed Universit y of Vaccine Quad IM, 00:00:00 [place] Me dical Preserv and ABX Branch Free 6 MO-64 YRS Influenza Virus 2021-05-08 Completed Universit y of Vaccine Quad IM, 00:00:00 [place] Me dical Preserv and ABX Branch Free 6 MO-64 YRS TDAP 2020-09-15 Completed University of 00:00:00 [facility] TDAP 2020-09-15 Completed University of 00:00:00 [facility] TDAP 2020-09-15 Completed University of 00:00:00 [facility] TDAP 2020-09-15 Completed University of 00:00:00 [facility] TDAP 2019-03-15 Completed University of 00:00:00 [facility] TDAP 2019-03-15 Completed University of 00:00:00 [facility] TDAP 2019-03-15 Completed University of 00:00:00 [facility] TDAP 2019-03-15 Completed University of 00:00:00 [facility] TDAP 2015-09-03 Completed University of 00:00:00 [facility] TDAP 2015-09-03 Completed University of 00:00:00 [facility] TDAP 2015-09-03 Completed University of 00:00:00 [facility] TDAP 2015-09-03 Completed University of 00:00:00 [facility] TDAP 2015-01-14 Completed University of 00:00:00 [facility] TDAP 2015-01-14 Completed University of 00:00:00 [facility] TDAP 2015-01-14 Completed University of 00:00:00 [facility] TDAP 2015-01-14 Completed University 00:00:00 [facility] Vital Signs Vital Name Observation Time Observation Value Comments Source Systolic blood 2022-07-19 04:00:00 119 mm[Hg] Univer sity of pressure [facility] Diastolic blood 2022-07-19 04:00:00 71 mm[Hg] Unive rsity of pressure [facility] Heart rate 2022-07-19 04:00:00 61 /min Universi ty [facility] Body temperature 2022-07-19 04:00:00 36.67 [facility]ita [facility] Respiratory rate 2022-07-19 04:00:00 16 /min Univ [facility] Oxygen saturation in 2022-07-19 04:00:00 99 /min [facility] Arterial blood by [facility] Pulse oximetry Branch Body weight 2022-07-19 03:19:00 83.915 kg Universi [facility] Systolic blood 2021-08-20 19:55:00 134 mm[Hg] Univer sity of pressure [facility] Diastolic blood 2021-08-20 19:55:00 78 mm[Hg] Unive rsity of pressure [facility] Heart rate 2021-08-20 19:55:00 67 /min Universi [facility] Body temperature 2021-08-20 19:55:00 36.11 Margarita [facility] Respiratory rate 2021-08-20 19:55:00 20 /min [facility] Body height 2021-08-20 19:55:00 162.6 cm Universi ty [facility] Body weight 2021-08-20 19:55:00 85.9 kg [facility] BMI 2021-08-20 19:55:00 32.51 kg/m2 [facility] Procedures Procedure Date / Time Performed Performing Clinician Ruba e POCT TEST 2021-08-20 19:56:00 Yana [facility]vel [facility] Encounters Start End Encounter Admission Attending Care Care Encounter Source Date/Time Date/Time Type Type Clinicians Facility Department ID 2021-03-20 Emergency [facility] [id number] Univers 08:47:55 ity of [facility] 2022-09-21 2022-09-21 Outpatient R BECKA [facility] [id number] Univers 14:45:00 14:45:00 YANA dk o f [facility] 2022-08-17 2022-08-17 Outpatient R BECKA [facility] [id number] Univers 15:00:00 15:00:00 YANA dk o f [facility] 2022-08-09 2022-08-[address] [facility] [id number] [facility] 00:00:00 00:00:00 Whitney Alicia MARKETING MANAGER HEALTH COMMUNICATIONS [id number] ity [facility] [id number] José Miguel as MATERNAL [id number] Med ical & CHILD [address] [place] [address] 2022-07-18 2022-07-18 Outpatient P MILLER MATA [facility] O BY [id number] Univers 21:07:00 22:10:00 RODRIGUEZMILLER PANIAGUA [facility] 2022-07-18 2022-07-18 [facility] [id number] Univers 21:07:00 22:10:00 [facility] [id number] ity [facility] [id number] [place] [id number] [address] 2022-07-13 2022-07-13 Outpatient R MURALI [facility] [id number] Univers 13:45:00 13:45:00 DANIELLE tamra [facility] 2021-12-01 2021-12-01 Outpatient R SKYE HEDRICK [facility] [id number] Univers 10:30:00 10:30:00 SKYE HEDRICK [facility] 2021-11-30 2021-11-[address] [facility] [id number] Univers 00:00:00 00:00:00 Yana C MARKETING MANAGER HEALTH COMMUNICATIONS [id number] ity of [facility] [id number] José Miguel as MATERNAL [id number] [facility] & [address] 2021-11-12 2021-11-12 Outpatient R [facility] [id number] Univers 10:30:00 10:30:00 ity [facility] 2021-11-12 2021-11-12 [facility] [id number] Univers 10:30:00 10:30:00 ROSNDA ity o f [facility] 2021-08-26 2021-08-26 Outpatient R [facility] [id number] Univers 10:00:00 10:00[facility] 2021-08-20 2021-08-[address] [facility] [id number] Univers 13:30:00 15:26:07 Visit Yana Arzola MARKETING MANAGER [employer] COMMUNICATIONS [id number] ity of [facility] [id number] José Miguel as MATERNAL [id number] [facility] & [address] 2021-08-20 2021-08-20 Outpatient R BECKA, [facility] [id number] Univers 13:30:00 15:26:07 YANA ity o f [facility] 2021-08-20 2021-08-20 Outpatient R AKINJAYNE, [facility] [id number] Univers 13:30:00 13:30:00 YANA ity o f [facility] 2021-08-12 2021-08-12 [facility] [id number] Univers 10:30:00 11:22:48 ROSHUNDA ity o [facility] 2021-08-12 2021-08-[address] [facility] [id number] Univers 10:30:00 11:22:48 [facility]ETING MANAGER HEALTH COMMUNICATIONS [id number] ity of [facility] [id number] José Miguel as MATERNAL [id number] Med ical & CHILD 107 [facility] 2021-08-12 2021-08-12 Orders Doctor LUIS [id number] Univers 00:00:00 00:00:00 Only Unassigned, TONIO [id number] ity of [facility] [id number] José Miguel as [id number] [address] 2021-08-06 2021-08-06 Outpatient R BECKA, [facility] [id number] Univers 13:15:00 13:15:00 YANA ity o [facility] 2021-08-06 2021-08-06 [facility] [id number] Univers 13:15:00 13:15:00 YANA ity o [facility] 2021-05-08 2021-05-[address] [facility] [id number] Univers 13:30:00 15:10:16 Visit Skye Templeton MARKETING MANAGER HEALTH COMMUNICATIONS [id number] it y of [facility] [id number] José Miguel as MATERNAL [id number] [facility] ical & CHILD [address] [place] [address] 2021-05-08 2021-05-08 [facility] [id number] Univers 13:30:00 15:10:16 SKYE root [facility] 2021-05-08 2021-05-08 [facility] [id number] Univers 13:30:00 13:30:00 SKYE root [facility] 2021-02-05 2021-02-05 Outpatient R BECKA, [facility] [id number] Univers 08:15:00 08:15:00 YANA ity o [facility] 2021-01-07 2021-01-07 Outpatient R BECKA [facility] [id number] Univers 15:15:00 15:15:00 YANA ity o f [facility] 2020-12-17 2020-12-[address] [facility] [id number] Univers 08:15:24 08:45:40 Yana C MARKETING MANAGER HE[employer] COMMUNICATIONS [id number] ity of Visit REGIONAL [id number] José Miguel as MATERNAL [id number] [facility] & CHILD [address] [place] [address] 2020-12-17 2020-12-17 Outpatient R BECKA [facility] [id number] Univers 08:15:00 08:15:00 YANA sotoy o jaxon [facility] 2020-12-08 2020-12-08 [facility] [id number] Univers 16:00:00 16:00:00 YANA sotoy o jaxon [facility] 2020-11-25 2020-11-25 [facility] [id number] Univers 00:00:00 00:00:00 Yana C MARKETING MANAGER HEALTH COMMUNICATIONS [id number] ity of REGIONAL [id number] José Miguel as MATERNAL [id number] [facility] & CHILD [address] [place] [address] 2020-11-17 2020-11-17 Outpatient R BECKA [facility] [id number] Univers 10:30:00 10:30:00 YANA brittanytamra o [facility] 2020-10-29 2020-10-29 Telephone [facility] [id number] Univers 00:00:00 00:00:00 Roshunda R MARKETING MANAGER HE[employer] COMMUNICATIONS [id number] ity of REGIONAL [id number] José Miguel as MATERNAL [id number] [facility] & CHILD [address] [place] [address] 2020-10-21 2020-10-21 Routine [facility] [id number] 09:02:21 09:33:43 Roshunda R MARKETING MANA[employer]ICATIONS [id number] Visit REGIONAL [id number] MATERNAL [id number] & [address] 2020-10-21 2020-10-21 Routine [facility] [id number] Univers 09:02:21 09:33:43 Roshunda R MARKETING MANAGER HE[employer] COMMUNICATIONS [id number] ity of Visit REGIONAL [id number] José Miguel as MATERNAL [id number] [facility] ical & CHILD [address] [place] [address] 2020-10-21 2020-10-21 Outpatient R TOSHIA AZFEMI [facility] [id number] Univers 08:15:00 08:15:00 ROSHUNDA ity o f [facility] 2020-10-15 2020-10-15 Telephone Toshia [facility] [id number] 00:00:00 00:00:00 Roshunda R [employer]ETING MANA[employer]ICATION[employer] [id number] REGIONAL [id number] MATERNAL [id number] & CHILD [address] [place] [address] 2020-10-15 2020-10-15 Telephone Toshia [facility] [id number] Univers 00:00:00 00:00:00 Roshunda R MARKETING MANAGER HE[employer] COMMUNICATIONS [id number] ity of REGIONAL [id number] José Miguel as MATERNAL [id number] [facility] [address] [place] [address] 2020-10-14 2020-10-14 Routine Toshia [facility] [id number] Univers 07:49:14 08:52:03 Roshunda R MARKETING MANAGER HE[employer] COMMUNICATIONS [id number] ity of Visit REGIONAL [id number] José Miguel as MATERNAL [id number] [facility] & CHILD [address] [place] [address] 2020-10-14 2020-10-14 Outpatient Maral [facility] [id number] Univers 07:45:00 07:45:00 ROSHUNDA ity o f [facility] 2020-10-14 2020-10-[address] [facility] [id number] Univers 00:00:00 00:00:00 Roshunda R MARKETING MANAGER HE[employer] COMMUNICATIONS [id number] ity of REGIONAL [id number] José Miguel as MATERNAL [id number] [facility] & CHILD [address] [place] [address] 2020-10-13 2020-10-13 Outpatient R TOSHIA [facility] [id number] Univers 13:15:00 13:15:00 FLAKONDA ity o f [facility] 2020-10-08 2020-10-08 Outpatient Maral TOSHIA [facility] [id number] Univers 07:45:00 07:45:00 FLAKONDA ity o f [facility] 2020-10-06 2020-10-06 Outpatient Maral TOSHIA [facility] [id number] Univers 15:45:00 15:45:00 FLAKONDA brittanyy o jaxon [facility] 2020-09-29 2020-09-29 Outpatient Maral TOSHIA [facility] [id number] Univers 12:45:00 12:45:00 FLAKONDA dk o jaxon [facility] 2020-09-22 2020-09-22 Outpatient Maral [facility] [id number] Univers 08:00:00 08:00:00 FLAKONDA dk o jaxon [facility] 2020-09-18 2020-09-[address] [facility] [id number] Univers 00:00:00 00:00:00 Rosjersonnda R MARKETING MANA[employer] HE[employer] COMMUNICATIONS [id number] ity of REGIONAL [id number] José Miguel as MATERNAL [id number] [facility] ical & CHILD [address] [place] [address] 2020-09-16 2020-09-[address] [facility] [id number] Univers 00:00:00 00:00:00 Roshunda R MARKETING MANAGER HEALTH COMMUNICATIONS [id number] ity of REGIONAL [id number] José Miguel as MATERNAL [id number] [facility] ical & CHILD [address] [place] [address] 2020-09-15 2020-09-[address] [facility] [id number] Univers 11:09:33 11:35:21 Roshunda R MARKETING MANAGER HE[employer] COMMUNICATIONS [id number] ity of Visit REGIONAL [id number] José Miguel as MATERNAL [id number] [facility] [address] [place] [address] 2020-09-15 2020-09-15 Outpatient Maral [facility] [id number] Univers 11:00:00 11:00:00 FLAKONDA ittamra o f [facility] 2020-09-12 2020-09-12 [facility] [id number] Univers 08:45:00 08:45:00 CONNIEA ittamra o f [facility] 2020-09-03 2020-09-03 [facility] [id number] Univers 09:30:00 09:30:00 CONNIEA dk o jaxon [facility] 2020-09-02 2020-09-02 Laboratory Lab, [facility] Fam Pob I [facility] 1.2. [id number] Univers 10:21:50 10:41:50 Only Capri Dupree [facility] [id number] [facility] 4.2.7.2.686 José Miguel as Professio [id number] Ar dical [address] Office [facility] 2020-09-02 2020-09-02 Outpatient R [facility] [id number] Univers 10:00:00 10:00:00 ity [facility] 2020-09-01 2020-09-01 Outpatient R [facility] [id number] Univers 17:00:00 17:00:00 [facility] 2020-09-01 2020-09-01 [facility] [id number] Univers 00:00:00 00:00:00 Anayelivaleri Alicia MARKETING MANAGER HEALTH COMMUNICATIONS [id number] ity of [facility] [id number] José Miguel as MATERNAL [id number] Med ical & CHILD [address] [place] [address] 2020-08-27 2020-08-27 Telephone [facility] [id number] Univers 00:00:00 00:00:00 Anayeliangiea R MARKETING MANAGER HEALTH COMMUNICATIONS [id number] ity of REGIONAL [id number] José Miguel as MATERNAL [id number] Med ical & CHILD [address] [place] [address] 2020-08-25 2020-08-25 [facility] [id number] Univers 14:30:00 14:30:00 ROSJERSONNDA ity o [facility] 2020-08-12 2020-08-12 Patient Dennis [facility] [id number] Univers 00:00:00 00:00:00 Outreach Scott PRIMARY 350.1.13.[address] [facility] [id number] [place] [id number] Ar dical [address] [place] [address] 2020-08-11 2020-08-11 [facility] [id number] Univers 13:45:00 13:45:00 ROSJERSONNDA ity o [facility] 2020-07-31 2020-07-31 Outpatient R [facility] [id number] Univers 13:00:00 13:00:00 [facility] 2020-07-23 2020-07-23 Outpatient R [facility] [id number] Univers 13:30:00 13:30:00 [facility] 2020-07-21 2020-07-[address] [facility] [id number] Univers 14:45:01 15:41:37 Rosjersonnda R [employer]ETING [employer]NA[employer] HE[employer] COMMUNICATIONS [id number] ity of Visit REGIONAL [id number] José Miguel as MATERNAL [id number] Med ical & CHILD [address] [place] [address] 2020-07-21 2020-07-21 [facility] [id number] Univers 14:45:00 14:45:00 ROSJERSONNDA ity o [facility] 2020-07-16 2020-07-16 [facility] [id number] Univers 15:00:00 15:00:00 ROSJERSONNDA ity o [facility] 2020-06-30 2020-06-[address] [facility] [id number] Univers 00:00:00 00:00:00 Rosjersonnda R MARKETING MANA[employer] HE[employer] COMMUNICATIONS [id number] ity of REGIONAL [id number] José Miguel as MATERNAL [id number] Med ical & CHILD [address] [place] [address] 2020-06-27 2020-06-27 Material Processor 3, [facility] Usg Room UNIVERSIT 1 .2.840.114 [id number] Univers 09:21:04 11:18:05 Visit Betty Espinal [id number] ity of CL[id number] [phone] [facility] [address] [place] 2020-06-27 2020-06-27 Outpatient P [facility] [id number] Univers 09:00:00 09:00:00 ity of [facility] 2020-06-18 2020-06-[address] [facility] 1.2.840.114 [id number] Univers 14:01:57 14:48:23 Whitney Alicia [employer] [id number] ity of Visit [facility] [id number] José Miguel as MATERNAL [phone] [facility] & CHILD [address] [place] [address] 2020-06-18 2020-06-18 Outpatient Maral P[facility] [id number] Univers 13:45:00 13:45:00 WHITNEY casper [facility] 2020-06-18 2020-06-18 Orders Doctor LUIS 1.2.840.114 [id number] Univers 00:00:00 00:00:00 Only Unassigned, TONIO [id number] ity of [place] [facility] 4.2.7.2.686 Jsoé Miguel as [phone] [facility] [address] 2020-06-10 2020-06-10 Outpatient Maral VIZCAINO [facility] [id number] Univers 08:00:00 08:00:00 SKYE root [facility] 2020-05-05 2020-05-05 Outpatient Maral [facility] [id number] Univers 14:00:00 14:00:00 WHITNEY root o f [facility] 2019-12-18 2019-12-18 Transition Thierry Ty 1.2.840.114 [id number] Univers 00:00:00 00:00:00 of Care Radha Montgomery 350.1.13.10 i ty of [place] [phone] [facility] [address] 2019-12-15 2019-12-17 Hospital Aminah Russo [facility] 1.2.840. 114 [id number] Univers 10:18:51 16:28:00 Encounter Son Evans 350.1.13.10 it[place] of [place] [phone] [facility] [address] [place] 2019-07-16 2019-07-16 Office [facility] 1.2.840.114 [id number] Univers 15:23:19 16:25:38 Visit Whitney Alicia [employer]ICATION[employer] [id number] ity of [facility] [id number] José Miguel as MATERNAL [phone] Med ical & CHILD [address] [place] [address] 2019-07-16 2019-07-16 Outpatient R [facility] [id number] Univers 15:15:00 15:15:00 FLAKONDAna ity o f [facility] 2019-06-25 2019-06-25 Routine [facility] 1.2.840.114 [id number] Univers 11:16:05 11:40:23 Whitney R [employer]ICATION[employer] [id number] ity of Visit [facility] [id number] José Miguel as MATERNAL [phone] [facility] & CHILD [address] [place] [address] 2019-01-19 2019-01-[address] [facility] 1.2.840.114 [id number] Univers 00:00:00 00:00:00 Yana Arzola MARKETING MANA[employer]UNICATIONS [id number] ity of [facility] [id number] José Miguel as MATERNAL [phone] [facility] ical & CHILD [address] [place] [address] 2019-01-18 2019-01-18 Material Processor 2, [facility] Us Room UNIVERSIT 1 .2.840.114 [id number] Univers 10:50:09 13:05:20 Visit Sharron Melton [facility] 350.1.1 3.10 ity of Luli Roy [facility] 4.2.7.2.686 [place] [phone] [address] 2018-12-29 2018-12-29 Telephone Toshia [facility] [id number] Univers 00:00:00 00:00:00 Rosjersonnda R [employer]ING [employer]ICATION[employer] 350.1.13.10 ity [facility] 4.2.7.2.686 José Miguel as MATERNAL [phone] [facility] ical & CHILD [address] [place] [address] 2018-12-29 2018-12-[address] 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
--- NOTE | 2023-01-16 23:05 | EDPHYS ---
Physician Documentation [facility] Name: Maame Mcmahon Age: 22 yrs Sex: Female : 2000 Arrival Date: 01/16/2023 Time: 20:42 Bed IW10 Private MD: ED Physician Vladislav Etienne HPI: 01/16 21:17 This 22 yrs old Female presents to ER via Ambulatory with complaints of Fever, snw Nausea, Breathing Difficulty. 21:17 The patient reports fever, not measured (subjective). Onset: The symptoms/episode snw began/occurred suddenly. Associated signs and symptoms: Pertinent positives: decreased appetite, nausea, sinus congestion. It is unknown whether or not the patient has had similar symptoms in the past. The patient has not recently seen a physician. Historical: - Allergies: 21:05 No Known Allergies; ap3 - PMHx: 21:05 None; ap3 - Immunization history:: Client reports having NOT received the Covid vaccine. - Social history:: Smoking status: Patient denies any tobacco usage or history of. ROS: 21:17 Eyes: Negative for injury, pain, redness, and discharge, ENT: Negative for injury, snw pain, and discharge, Neck: Negative for injury, pain, and swelling, Cardiovascular: Negative for chest pain, palpitations, and edema. 21:17 Back: Negative for injury and pain, : Negative for injury, bleeding, discharge, and swelling, MS/Extremity: Negative for injury and deformity, Skin: Negative for injury, rash, and discoloration, Neuro: Negative for headache, weakness, numbness, tingling, and seizure, Psych: Negative for depression, anxiety, suicide ideation, homicidal ideation, and hallucinations. 21:17 Constitutional: Positive for body aches, fever, malaise, poor PO intake. 21:17 Respiratory: Positive for shortness of breath. 21:17 Abdomen/GI: Positive for nausea. Exam: 23:26 Constitutional: The patient appears VSS, pt ambulatory in lobby snw Vital Signs: 21:04 BP 121 / 84; Pulse 111; Resp 17; Temp 99.1; Pulse Ox 100% ; Weight 81.65 kg; ap3 Miguel Coma Score: 23:26 Eye Response: spontaneous(4). Motor Response: obeys commands(6). Verbal Response: snw oriented(5). Total: 15. MDM: 21:18 Differential diagnosis: viral Infection, bacterial infection, URI. Data reviewed: vital snw signs, nurses notes, lab test result(s). Counseling: I had a detailed discussion with the patient and/or guardian regarding the historical points, exam findings, and any diagnostic results supporting the discharge/admit diagnosis, lab results, the need for outpatient follow up, to return to the emergency department if symptoms worsen or persist or if there are any questions or concerns that arise at home. Special discussion: Based on the history and exam findings, there is no indication for further emergent testing or inpatient evaluation. I discussed with the patient/guardian the need to see the primary care provider for further evaluation of the symptoms. 23:01 ED course: called pt multiple times for assessment, vss, phoned pt to return to [facility] for assessment. . 23:04 Patient medically screened. snw 01/16 21:06 Order name: COVID-19 SARS RT PCR; Complete Time: 22:20 ap3 01/16 21:06 Order name: Flu; Complete Time: 22:20 ap3 Administered Medications: No medications were administered Disposition: 23:26 Chart complete. snw 01/17 01:28 Co-signature as Attending Physician, Vladislav Etienne DO I was immediately available on-site ms3 in the Emergency Department for consultation in the care of the patient. Disposition Summary: 01/16/23 23:04 Discharge Ordered Location: Home snw Condition: Stable snw Diagnosis - SARS-associated coronavirus as the cause of diseases classified elsewhere snw Followup: snw - With: Private Physician - When: 2 - 3 days - Reason: Recheck today's complaints, Continuance of care, Re-evaluation by your physician Followup: snw - With: Emergency Department - When: As needed - Reason: Worsening of condition Discharge Instructions: - Discharge Summary Sheet snw - Aspirin and Your Heart snw - COVID-19 snw - 10 Things You Can Do to Manage Your COVID-19 Symptoms at Home - [facility] (12/05/2020) snw - COVID-19: Quarantine and Isolation - [facility] (08/19/2021) snw Forms: - Medication Reconciliation Form snw - Thank You Letter snw - Antibiotic Education snw - Prescription Opioid Use snw - Patient Portal Instructions snw - Leadership Thank You Letter snw Prescriptions: - Zyrtec 10 mg Oral Tablet - take 1 tablet by ORAL route once daily As needed; 20 tablet; Refills: 0, snw Product Selection Permitted - Prednisone 20 mg Oral Tablet - take 2 tablets by ORAL route once daily for 5 days; 10 tablet; Refills: 0, snw Product Selection Permitted - Pepcid 20 mg Oral Tablet - take 1 tablet by ORAL route once daily; 20 tablet; Refills: 0, Product snw Selection Permitted - Zithromax 500 mg Oral Tablet - take 1 tablet by ORAL route once daily for 5 days; 5 tablet; Refills: 0, snw Product Selection Permitted Signatures: Dispatcher [employer] Carmina Ashford, MARQUISE-C OPHTHALMIC MEDICAL ASSISTANT-[place]iss[place] Allie Turcios, RN RN ap3 Vladislav Etienne DO DO ms3
--- NOTE | 2023-01-16 23:05 | ER ---
Nurse's Notes [facility] Name: Maame Mcmahon Age: 22 yrs Sex: Female : 2000 Arrival Date: 01/16/2023 Time: 20:42 Bed IW10 Private MD: Diagnosis: SARS-associated coronavirus as the cause of diseases classified elsewhere Presentation: 01/16 21:04 Chief complaint: Patient states: she started having nausea and shortness of breath this ap3 morning with low fevers. Coronavirus screen: At this time, the client does not indicate any symptoms associated with coronavirus-19. Ebola Screen: No symptoms or risks identified at this time. Initial Sepsis Screen: Does the patient meet any 2 criteria? HR > 90 bpm. Does the patient have a suspected source of infection? No. Patient's initial sepsis screen is negative. Risk Assessment: Do you want to hurt yourself or someone else? Patient reports no desire to harm self or others. Onset of symptoms was January 16, 2023. 21:04 Method Of Arrival: Ambulatory ap3 21:04 Acuity: GODFREY 3 ap3 Triage Assessment: 21:05 General: Appears ill, Behavior is calm, cooperative, appropriate for age. Pain: ap3 Complains of pain in generalized body aches. Neuro: Level of Consciousness is awake, alert, obeys commands, Oriented to person, place, time, situation. Cardiovascular: Patient's skin is warm and dry. Respiratory: Reports shortness of breath Airway is patent Respiratory effort is even, unlabored, Respiratory pattern is regular, symmetrical. GI: Reports nausea. Historical: - Allergies: 21:05 No Known Allergies; ap3 - PMHx: 21:05 None; ap3 - Immunization history:: Client reports having NOT received the Covid vaccine. - Social history:: Smoking status: Patient denies any tobacco usage or history of. Screenin:05 [facility] ED Fall Risk Assessment (Adult) History of falling in the last 3 months, ap3 including since admission No falls in past 3 months (0 pts). Abuse screen: Denies threats or abuse. Nutritional screening: No deficits noted. Tuberculosis screening: No symptoms or risk factors identified. Assessment: 23:03 General: called pt from lobby several times, no response. called pt cell phone with no as6 answer. told pt to call ER . 23:05 General: pt left before receiving discharge instructions . as6 Vital Signs: 21:04 BP 121 / 84; Pulse 111; Resp 17; Temp 99.1; Pulse Ox 100% ; Weight 81.65 kg; ap3 [place] Coma Score: 23:26 Eye Response: spontaneous(4). Motor Response: obeys commands(6). Verbal Response: snw oriented(5). Total: 15. ED Course: 20:43 Patient arrived in ED. rg4 20:45 Carmina Meek FNP-C is [facility]. snw 20:45 Vladislav Etienne DO is Attending Physician. snw 21:05 Triage completed. ap3 21:05 Arm band placed on right wrist. ap3 22:40 Lauryn Jenkins, RN is Primary Nurse. me1 23:03 Patient's name was called from ER lobby. No response. Unable to locate patient. Will as6 disposition as left without being seen by a provider. Administered Medications: No medications were administered Outcome: 23:04 Discharge ordered by MD. snw 23:08 Patient left the ED. as6 Signatures: Carmina Meek FNP-C DATA ANALYTICS ARCHITECT-CsnCristina Eric rg4 Allie Turcios RN RN ap3 Griffin Faulkner, POLLY RN as6 Lauryn Jenkins, POLLY RN me1
[2023-01-17 00:22] VITALS: BP 121/84; TEMP 99.1; O2SAT 100
== END 2023-01-16 23:08 | disposition home or self-care (01) ==
LOC: ER 20:42
DX: U07.1 COVID-19 (principal)
CPT/HCPCS: 87635; 87804; 99281